=== PATIENT | male | born 1945 | race Caucasian/White ===

== ENCOUNTER 2017-08-11 06:33 | Observation (INO) | payer MEDICARE, BC ==
[~2017-08-11 06:33] MED LIST: MORPHINE SULFATE 15 MG TABLET.SA PO PRN; RINGER'S SOLUTION,LACTATED 1,000 ML IV PRN; ROPIVACAINE HCL/PF 100 MG, EPINEPHrine 0.2 MG, KETOROLAC TROMETHAMINE 30 MG in NORMAL S... IJ PRN; TRANEXAMIC ACID 1,000 MG in NORMAL SALINE 100 ML IV PRN; ceFAZolin SODIUM 1 GM VIAL IV PRN
[2017-08-11] MEDS ORDERED: RINGER'S SOLUTION,LACTATED 1,000 ML IV ONE ×2 (08:15→10:00)
[2017-08-11] MEDS ORDERED: BUPIVACAINE HCL/0.9 % NACL/PF 250 ML EP PRN (08:57)
--- NOTE | 2017-08-11 09:56 | POSTOP NO ---
Date of Surgery: 08/11/17 Patient Tolerated the Procedure: Well Post Operative Diagnosis/Procedures: Special Investigation Unit Investigator: Amari Sullivan PA-C Post-operative Diagnosis: Right knee degenerative joint disease Finding: Above Procedure: Right total knee arthroplasty Estimated Blood Loss: Minimal Specimens: Bone for disposal
[2017-08-11] MEDS ORDERED: PROMETHAZINE HCL 5 MG in DEXTROSE 5 % IN WATER 50 ML IV PRN ×2 (09:58)
[2017-08-11] MEDS ORDERED: diphenhydrAMINE HCL 50 MG/ML VIAL IV PRN (09:58)
[2017-08-11] MEDS ORDERED: ACETAMINOPHEN 500 MG TABLET PO PRN (09:58)
[2017-08-11] MEDS ORDERED: ONDANSETRON HCL/PF 2 MG/ML VIAL IV PRN (09:58)
[2017-08-11] MEDS ORDERED: HYDROmorphone HCL 2 MG/ML VIAL IV PRN (09:58)
[2017-08-11] MEDS ORDERED: oxyCODONE HCL/ACETAMINOPHEN 1 TAB TABLET PO PRN (09:58)
[2017-08-11] MEDS ORDERED: ZOLPIDEM TARTRATE 5 MG TABLET PO PRN (09:58)
[2017-08-11] MEDS ORDERED: MAG HYDROX/ALUMINUM HYD/SIMETH 30 ML UDC PO PRN (09:58)
[2017-08-11] MEDS ORDERED: MAGNESIUM HYDROXIDE 30 ML UDC PO PRN (09:58)
[2017-08-11] MEDS ORDERED: DEXTROSE 5%-LACTATED RINGERS 1,000 ML IV PRN (09:58)
--- NOTE | 2017-08-11 09:58 | OR ---
Operative Report - Dictated Report Narrative: Date: 08/11/2017 Preoperative diagnosis: Right Knee degenerative joint disease. Postoperative diagnosis: Right Knee degenerative joint disease. Procedure: Right Total knee arthroplasty. Surgeon: Guicho Riggins M.D. Casino Floor Supervisor: Amari Sullivan PA-C Anesthesia: Spinal with femoral canal block and indwelling catheter and local periarticular joint injection. Complications: None Specimens: Bone for disposal. Estimated blood loss: Minimal. Tourniquet time: 82 Minutes at 325 millimeters of mercury. Retained implants: Depuy Attune size 6 right lugged cemented posterior stabilized femoral component. Size 6 fixed-bearing cemented tibial platform. 6 by 5 millimeter posterior stabilized cross-linked tibial insert. 38 millimeter medialized patella button. Indications: Mr. Jack is a 71-year-old gentleman who has had long-standing right knee pain and arthrosis. This patient was followed in my clinic for period of time with significant complaints of right knee pain consistent with arthritic changes. He had failed conservative measures including, but not limited to, activity modification, passage of time, medications, and other conservative measures. Patient wished to proceed with surgical treatment. The risks, benefits, and alternatives were discussed in clinic. The risks of , blood clots, bleeding, infection, nerve/tendon blood vessel/ injury, malposition of components, intraoperative fracture, postoperative limited range of motion, persistent pain, failure of components, and need for additional procedures. Patient wished to proceed consent was obtained after answering all questions. Procedure: After marking the correct extremity on the floor, the patient was taken to the operating room. A timeout was performed. IV antibiotics consisting of Ancef were administered prior to the procedure. A regional femoral canal block with indwelling catheter followed by spinal anesthetic was induced by anesthesia, per my request, on the operative table with all bony prominences well-padded. Denton catheter was placed, and a bump was placed under the operative side buttock. SCDs and DEONTE hose were utilized on the nonoperative leg. A well-padded tourniquet was applied to the operative thigh. The operative leg was then pre-scrubbed with alcoho,l prepped, and draped in a standard sterile fashion. After exsanguinating the extremity with an Esmarch bandage, the tourniquet was inflated. After marking out the anterior knee for standard incision centered over the patella, the skin was incised and dissected down to the joint retinaculum. The joint retinaculum was marked out as well as the horizontal axis of the patella, and a standard medial parapatellar arthrotomy was then made. The most proximal aspect of the quadriceps tendon and the patella tendon insertion were protected from release. A partial synovectomy was performed as well as a resection of the infrapatellar fat pad. The distal femoral fat pad proximal to the trochlea was also resected using cautery. The soft tissues were elevated off the medial aspect of the proximal tibia using a Ham elevator ensuring that we did not transect the medial collateral ligament. Upon initial evaluation range of motion was approximately 0 degrees to 130 degrees of flexion. There were signs of advanced arthrosis in the medial and patellofemoral joint spaces. There were large marginal osteophytes which were removed with a rongeur. The knee was hyperflexed and the patella was tucked laterally. Protecting the surrounding soft tissues with Homans, an entry drill was placed down the femoral canal using Whitesides line for guidance into the entry point. The intramedullary femoral alignment taqueria was utilized in order to cut the distal femur in 5 degrees of valgus resecting 10 millimeters of bone. Next the distal femur was sized to a size 6. A posterior referencing guide was utilized to place the distal femoral cutting block in 3 degrees of external rotation. This was pinned into place. The rotation was confirmed both visually and based on anatomic landmarks. The 4 in 1 cutting jig of the appropriate size was utilized in order to make all bony cuts. The angle wing was used to ensure no notching. Retractors were utilized in order to protect surrounding soft tissues. This cut did not result in any excessive notching. We then cut the box centered over the distal femur. This allowed for resection of the anterior and posterior cruciate ligaments. I then turned my attention to the preparation of the tibia. Using an extra medullary tibial alignment taqueria, 2 millimeters of bone was resected off the medial articular surface. This was made perpendicular to the mechanical axis of the joint with the alignment taqueria centered over the ankle mortise. The alignment taqueria was checked and was noted to be parallel to the mechanical axis, centered over the medial one third of the tibial tubercle, paralleling the anterior surface of the tibia. We then turned our attention to the remaining meniscus and soft tissues. These were removed while protecting the surrounding ligaments and soft tissues. The marginal osteophytes off the anterior, posterior, medial, lateral aspects of the femur and tibia were removed. The tibia was sized out to a size 6. Next the tibia was drilled and punched in an externally rotated position. Next the trial femur and a series of tibial inserts were utilized in order to allow for full extension and maximal flexion. It was found that a 5 millimeter insert gave the best range of motion and stability at multiple flexion points as well as at full extension there was less than 2 mm of gapping both medially and laterally. There is minimal anterior translation with the knee at 90 degrees of flexion and no signs of being able to dislocate the knee. The patella was then prepared. The initial thickness was 21 millimeters. This was reamed down to 12 millimeters parallel to the anterior surface of the patella. It was sized out to a size 38 medialized patella button. This was then drilled and trialed. Without any medial restraint the patella tracked appropriately and did not sublux or dislocate. At this point, it was felt these were the appropriate sized implants, and all trials were removed. The standard periarticular joint injection consisting of ropivacaine, Toradol, and epinephrine were injected into the periarticular joint tissues. The bony surfaces were thoroughly irrigated with a pulsatile- suction saline irrigation device. A bone plug from the prior resected anterior chamfer cut was placed into the drill hole at the distal femur. The bony surfaces were then dried in preparation for placement of the implants. The cement was vacuum mixed per the embossing machine operator helper's instructions. The cement was placed on the dry bony surfaces and posterior aspect of the implants. The implants were impacted into place, removing all extruded cement. At this point anesthesia administered tranexamic acid per protocol intravenously. The knee was placed in extension with axial loading with the trial insert while the cement cured. Once the cement cured, all remaining extruded cement was removed. The knee was placed through a range of motion with the trial insert to ensure appropriate range of motion and stability. Final range of motion was approximately 0 to 120 degrees. The knee was again thoroughly irrigated with pulsatile saline lavage. The final polyethylene insert was then impacted into place ensuring no retained soft tissues. The remaining periarticular joint injection was injected. A medium Hemovac drain was placed exiting superior laterally. The knee was then placed over a triangle and the arthrotomy was closed with interrupted #1 Vicryl after thoroughly irrigating the joint. The deep and subcutaneous tissues were closed with interrupted 0 and 3-0 Vicryl respectively. Skin was closed with a running subcutaneous 3-0 Monocryl and Prineo Dermabond dressing. 4 x 4's, Sof-Rol, and a full leg Satish wrap were applied. All sponge, needle, blade, and instrument counts were correct prior to closing the wounds. Postoperative condition: The patient was awoken and transferred to the postanesthesia care unit in stable condition. Plan is to be admitted to the inpatient medical/surgical floor postoperatively for 24 hours of IV antibiotics , physical therapy, occupational therapy, and medical comanagement. Patient will be weightbearing as tolerated with range of motion as tolerated. DVT prophylaxis will be with SCDs, DEONTE hose, and pharmacological anticoagulation. Anticipated hospital stay is approximately 2-4 days.
[2017-08-11] MEDS: ceFAZolin SODIUM 1 GM in DEXTROSE 5 % IN WATER 50 ML IV SCH ×6 (11:37→23:08)
[2017-08-11] MEDS: KETOROLAC TROMETHAMINE 15 MG/ML VIAL IV SCH ×3 (11:38→23:08)
--- NOTE | 2017-08-11 14:20 | OR ---
Anesthesia Procedure Note - Anesthesia Procedure Note Date of Service: 08/11/17 Narrative: Vital Signs - Last Taken Temp 36.2 C L 08/11/17 10:55 Pulse 60 08/11/17 12:35 Resp 18 08/11/17 12:35 BP 146/78 08/11/17 12:35 Pulse Ox 92 08/11/17 12:35 O2 Oxygen Delivery Method Room Air 08/11/17 14:16 ANESTHESIA PROCEDURE NOTE Date of Procedure: 08/11/2017. Time of procedure: 739. Performed by: Sharad Castillo CRNA Dental Director: None. Preprocedure diagnosis: Right knee degenerative joint disease. Post procedure diagnosis: Same. Procedure: Right ultrasound guided adductor canal blockwith insertion of indwelling catheter for continous nerve block postoperative analgesia. Indications: The patient is a 71 -year-old male, scheduled for right total knee arthroplasty and is requesting a right ultrasound-guided adductor canal block with catheter insertion for continuous post operative analgesia. Findings: See below. Details of the procedure: The tissue over the intended target site was cleansed with ChloraPrep and draped in a sterile fashion. 2 ml Lidocaine 1 % was infiltrated to the skin and subcutaneous tissue at the intended target site. Under sterile technique and ultrasound guidance a 18-gauge Tuohy needle was inserted through the right sartorius muscle to the saphenous nerve just medial to the femoral artery and vein. 15 mL's of 0.5% bupivacaine was injected after negative aspiration for blood. Needle tip and spread of local anesthetic surrounding the saphenous nerve was observed throughout the injection with real time ultrasound visualization. The bevel of the Tuohy needle was rotated 90 degrees clockwise to facilitate catheter insertion. A 20 guage closed tip catheter was easily threaded 4 cm into the adductor canal. The Tuohy needle was then removed intact. 1 ml sterile normal saline with 0.25 ml air was the injected through the catheter under real time ultrasound imaging to confirm catheter placement. Dermabond was applied to the skin at the catheter insertion site. tincture of benzoin was applied the the skin. the catheter was the secured with 1/4 inch steri strips and covered with a sterile tegaderm dressing. No complications were noted. The images were retained in the Hospital medical database . EBL: Minimal. Fluids: N/A. Specimen: N/A. Post procedure condition: The patient tolerated the procedure well. No complications were noted. Thank you for this consultation. Sharad Castillo CRNA 08/11/17 14:17
[2017-08-11] MEDS ORDERED: POLYVINYL ALCOHOL 150 DROP BTL LEFTEYE PRN (17:29)
[2017-08-11] MEDS: MORPHINE SULFATE 15 MG TABLET.SA PO SCH (20:51)
[2017-08-11] MEDS ORDERED: ATENOLOL 25 MG TABLET PO SCH (21:00)
[2017-08-11] MEDS ORDERED: SENNOSIDES/DOCUSATE SODIUM 1 TAB TABLET PO SCH (21:00)
[2017-08-12] MEDS: KETOROLAC TROMETHAMINE 15 MG/ML VIAL IV SCH ×2 (05:19→10:33)
[2017-08-12 05:49] LABS: Hematocrit 41.1 % (42.0-52.0); Hemoglobin 13.8 gm/dL (13.5-18.0); Mean Corpuscular Hemoglobin 27.9 pg (27-31); Mean Corpuscular Hgb Conc 33.6 g/dl (32-36); Platelet Count 144 K/mm3 (150-450); Red Blood Count 4.95 M/mm3 (4.7-6.0); Red Cell Distribution Width 13.7 % (11.5-14.0); White Blood Count 8.9 K/mm3 (4.0-10.5)
[2017-08-12 05:57] LABS: Anion Gap 10.4 mmol/L (6.8-13.8); BUN/Creatinine Ratio 16.1 (9.0-21.6); Calcium * 8.5 mg/dL (7.9-10.9); Carbon Dioxide 28.4 mmol/L (24-32.6); Estimated Creat Clear 67.6; Potassium 3.8 mmol/L (3.4-4.6)
[2017-08-12] MEDS ORDERED: LEVOTHYROXINE SODIUM 150 MCG TABLET PO SCH (07:00)
[2017-08-12] MEDS: MORPHINE SULFATE 15 MG TABLET.SA PO SCH (08:31)
[2017-08-12] MEDS ORDERED: ENOXAPARIN SODIUM 40 MG/0.4 ML SYRG SC SCH (08:58)
[2017-08-12 10:40] VITALS: BP 136/68
--- NOTE | 2017-08-12 11:48 | OR ---
Anesthesia Procedure Note - Anesthesia Procedure Note Date of Service: 08/12/17 Narrative: Vital Signs - Last Taken Temp 36.8 C 08/12/17 10:39 Pulse 68 08/12/17 10:39 Resp 18 08/12/17 10:39 BP 136/68 08/12/17 10:39 Pulse Ox 96 08/12/17 10:39 O2 Oxygen Delivery Method Room Air 08/12/17 11:45 ANESTHESIA PROCEDURE NOTE Date of Procedure: 08/12/2017. Time of procedure: 1120. Performed by: Sharad Castillo CRNA Industrial Automation Specialist: None. Preprocedure diagnosis: Degenerative joint disease right knee. Post procedure diagnosis: Same. Procedure: Removal right adductor canal block catheter. Indications: This 71-year-old male who has a indwelling right abductor canal block catheter and is scheduled for discharge. Findings: See below. Details of the procedure: Tegaderm dressing was removed. The adductor canal block catheter was removed intact with confirmation of intact blue tip. EBL: Minimal. Fluids: N/A. Specimen: N/A. Post procedure condition: The patient tolerated the procedure well. No complications were noted. Thank you for this consultation. Sharad Castillo CRNA
--- NOTE | 2017-08-12 12:21 | DS ---
(1) Hypertension Problem: Acute (2) S/P total knee arthroplasty Problem: Acute Description of Stay: Mr. Jack was admitted to the floor after undergoing right total knee arthroplasty. Tolerated this well. Was admitted to the floor postoperatively for 24 hours of IV antibiotics, pain control, medical comanagement, and occupational and physical therapy. OT and PT were consulted to assist with activities of daily living and ambulation. Was made weightbearing as tolerated with range of motion as tolerated. Pain was initially controlled with IV regimen. This was transitioned to oral once tolerating a by mouth intake. Was resumed on home diet and medications. Had a Denton catheter inserted and the operating room which was discontinued on postoperative day 1. A drain was placed intraoperatively into the knee which was discontinued on postoperative day 1. Lovenox SCD and DEONTE hose were utilized for DVT prophylaxis. Vital signs remained stable to the hospital course. Serial labs were obtained which showed a final 13.8 hemoglobin of grams. BMP was reviewed and was stable. Physical examination throughout the hospital course showed an extremity that had sensation that was intact to light touch, palpable pulses, a benign wound, motor intact to the toes, ankle, and knee. Knee range of motion was approximately 70 degrees to [] degrees. Once an oral pain regimen was tolerated and physical therapy goals were met, it was felt that they were stable for discharge to home. Instructions: Continue with weightbearing as tolerated and range of motion as tolerated. It is OK to shower on the wound if it is not draining. If you note any drainage or for comfort you can cover with dry gauze and tape. Change every 2-3 days as needed. Continue with physical therapy. Resume home diet. Report any fever over 101.5 Fahrenheit, uncontrolled pain, increased drainage, foul odor of drainage, new or increased calf pain or shortness of breath, or any other significant complaints. A 325mg dialy aspirin will be started after finishing anticoagulation if not allergic. Continue with DEONTE hose on the operative extremity until instructed otherwise. No driving until instructed otherwise. Follow up in approximately 10-14 days. Procedures Performed: see notes below List Procedures: Right total knee arthroplasty Discharge Disposition: Home self care Disposition: Home self-care Condition: Good Discharge Activity: Activity as tolerated, Other - with walker Discharge Diet: General/regular food, Low salt [facility] Therapy: Physicial Therapy Referrals: Shell Lomas, SHUFFLE BOARD OPERATOR [Primary Care Provider] - Prescriptions (Any new or edited meds): Enoxaparin Sodium [Lovenox] 40 mg SC Q24H #7 disp.syrin Morphine Sulfate [Ms Contin] 15 mg PO Q12H #20 tablet.sa oxyCODONE HCL/ACETAMINOPHEN [Percocet 5 MG/325 MG] 2 tab PO Q4H PRN #90 tablet PRN Reason: Moderate Pain (Pain Scale 4-6) Sennosides/Docusate Sodium [Senokot-S] 2 tab PO HS #30 tablet Complete Home Medications List: Complete Home Medication List: Atenolol [Tenormin] 25 mg PO HS 05/07/15 Levothyroxine Sodium [Synthroid] 150 mcg PO DAILY 07/30/17 Enoxaparin Sodium [Lovenox] 40 mg SC Q24H #7 disp.syrin 08/12/17 Morphine Sulfate [Ms Contin] 15 mg PO Q12H #20 tablet.sa 08/12/17 Sennosides/Docusate Sodium [Senokot-S] 2 tab PO HS #30 tablet 08/12/17 oxyCODONE HCL/ACETAMINOPHEN [Percocet 5 MG/325 MG] 2 tab PO Q4H PRN #90 tablet 08/12/17 Amb Orders for Discharge: PT Evaluation and Treatment Facility: [facility], Location: Rehabilitation Services
== END 2017-08-12 14:53 | disposition home or self-care (01) ==
LOC: AMB 06:33 → EDSTATUS 08:00 → MS 10:24
PROVIDERS: ADMIT Orthopaedic Surgery; ATTEND Orthopaedic Surgery
PROC: 0SRC069 Replacement of Right Knee Joint with Oxidized Zirconium on Polyethylene Synthetic Substitute, Cemented, Open Approach (ICD-10-PCS; principal; 2017-08-11)
DX: M17.11 Unilateral primary osteoarthritis, right knee (principal); D64.9 Anemia, unspecified; I10 Essential (primary) hypertension; Z85.850 Personal history of malignant neoplasm of thyroid; E89.0 Postprocedural hypothyroidism; Z68.33 Body mass index [BMI] 33.0-33.9, adult
CPT/HCPCS: 27447; 36415; 73560; 80048; 85027; 97110; 97116; 97162; 97165; 97530; 97535; C1776; G8978; G8979; G8980

== ENCOUNTER 2019-04-21 18:26 | Observation (INO) ==
--- NOTE | 2019-04-21 19:03 | ERNOTE ---
Headache ER HPI - Narrative Date of Service: 04/21/19 - General Presenting Symptoms: headache Time Seen by Provider: 04/21/19 18:47 Source: patient, family, RN notes reviewed Exam Limitations: no limitations - Immun/Allergies/Home Medications Immunizations: IMMUNIZATION HX Immunizations Up to Date Yes History of Influenza Vaccine No Hx Pneumococcal Vaccination Yes Allergies/Adverse Reactions: Allergies Penicillins Adverse Reaction (Mild, Verified 04/21/19 18:37) joints ache morphine Adverse Reaction (Verified 04/21/19 18:37) rash Home Medications: HOME MEDICATIONS Atenolol [Tenormin] 25 mg PO HS 05/07/15 [Last Taken Unknown] Levothyroxine Sodium [Synthroid] 150 mcg PO DAILY 07/30/17 [Last Taken Unknown] aspirin 81 mg tablet,delayed release 81 mg PO DAILY 04/06/19 [Last Taken Unknown] - History of Present Illness Narrative: Jamil is a 73 year old male brought to the ED by his for a 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 He was watching the news at the time. He also reports having altered sensation in the left side of his face and blurred vision. These symptoms have resolved, but the headache continues. His pain is in the left temporal region. He has not taken anything for the headache and denies needing any medication on initial exam. His reports that he seemed like he could not remember how to get out of the car when they arrived here. He admits that these episodes have been happening for a couple of months. Tonight was the first time he told his . Date (Duration): 04/21/19 Time (Timing): 17:45 Activity at onset: other - Rest Timing of Headache: abrupt, still present Context Headache: Present: new onset Quality: Present: achy Headache frequency: Present: occasional headaches. Absent: similar to previous headache Associated Symptoms: Reports: numbness/tingling. Denies: fever/chills, nausea, vomiting, nasal congestion, vision changes, dizziness, neck pain/stiffness, speech problems Prior Treament: Denies: recently seen Review of Systems - Review of Systems Constitutional: Absent: recent illness, fever, chills, malaise EYE: Present: blurred vision, vision changes. Absent: eye pain ENT: Absent: ear pain, nose congestion, sore throat Respiratory: Absent: shortness of breath, cough Cardiology: Absent: chest pain, palpitations, syncope Gastrointestinal/Abdominal: Absent: nausea, vomiting Genitourinary: Present: no symptoms reported Musculoskeletal: Absent: muscle pain, neck pain, joint pain Skin: Absent: rash, lesions Neurological: Present: headache. 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 Murguia Migraine Onset Date: Unknown Psoriasis Onset Date: Unknown Right knee DJD Onset Date: Unknown Thyroid nodule Onset Date: [address] murguia Surgical History: Surgical History (Updated 10/01/18 @ 10:38 by Guicho Riggins MD) History of appendectomy Onset Date: Unknown 6th grade History of colonoscopy Onset Date: 04/06/04 Normal-Dr Dowling History of knee replacement procedure of right knee Onset Date: 08/11/[address] Riggins History of thyroidectomy Onset Date: [address] [facility] [address] murguia hemorrhoid surgery Onset Date: Unknown 40 years ago Family History: Family History (Updated 09/30/18 @ 07:17 by Leidy Mathias) Brother Aneurysm stomach Brother Alive and well Brother Alive and well Brother Alive and well Sister Alive and well Sister Alive and well Sister Alive and well Father Cancer mouth Myocardial infarction Brother Myocardial infarction Mother No problems noted. 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 Service: No Tobacco: Smoking Status: Never smoker Alcohol: alcohol intake: current alcohol intake frequency: holiday/special occasion details: 1-2 glasses/wk Substance Use: substance use type: does not use Dietary Habits: caffeine: Yes Type: coffee Physical Exam - Physical Exam General Appearance: Present: wd/wn, alert, no apparent distress, other - Pleasant, talkative Head Exam: Present: normal inspection, no evidence of injury Eye Exam: Normal inspection: bilateral, PERRL: bilateral, EOMI: bilateral Ears, Nose, Throat: Present: normal ENT inspection, normal pharynx Neck: Present: normal inspection, nontender, supple, full range of motion Respiratory: Present: no respiratory distress, normal breath sounds, no accessory muscle use, lungs clear Cardiovascular/Chest: Present: no murmur, irregularly irregular Extremity Exam: Present: normal inspection, normal range of motion, no edema Neurological Exam: Present: alert, oriented, normal mood/affect, facial droop - left Skin Exam: Present: normal color, warm/dry Progress - Results and Orders Patient's Lab Results:: I have reviewed the patient's lab results. - Vital Signs Patient's Vital Signs:: I have reviewed the patient's vital signs. Vital Signs: Vital Signs 04/21/19 18:33 Temperature 36.8 C Pulse Rate 79 Respiratory Rate 16 Blood Pressure 172/82 H O2 Sat by Pulse Oximetry 93 - EKG EKG #1 EKG: other - Sinus rhythm with 1st degree AVB and freq PACs EKG read: Reviewed by me - CT/Ultrasound CT/Ultrasound Narrative: CT Head W/O *: Age-related cortical atrophy and periventricular white matter chronic ischemic changes are present. Intracranial atherosclerotic calcifications noted. 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 No acute intracranial hemorrhage. No midline shift or herniation. Ceballos and white matter differentiation is grossly intact. No obvious soft tissue swelling or scalp hematoma noted. Skull grossly intact, without signs of depressed skull fracture. Visualized portions of the paranasal sinuses are clear. Mastoid air cells are grossly clear. IMPRESSION: 1. No acute intracranial hemorrhage or mass effect. 2. 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 Consider further evaluation by CT or MR angiography. 3. Additional comments as above. Ordering provider Nataliia Morales NP was informed regarding the above results by telephone on 04/21/2019 7:25 PM. Electronically signed by Leora Parmar M.D.. - Progress/Reassessment Chief Complaint: Headache Progress:: Improved Plan - Plan Plan: The patient's facial droop and paresthesias have resolved. He continues to have a headache behind his left eye but still declines any pain medicaiton for it. Dr. Veronica was contacted for admission. She requested that neurology be consulted before the patient was admitted here. I initially contacted UI consult at [phone]. A neurologist was paged. I finally received a call back from Dr. Jose Alberto Gamez (sp?) at [phone]. I discussed the patient with him, particularly if a LP should be done to more definitively rule out intracranial bleeding prior to admission. Since the patients nuero symptoms have resolved, he did not feel this was necessary. He recommended that the patient be observed overnight and that neurology be consulted. Dr. Veronica agreed to admit the patient to observation status on med/surg. He will be on Tele d/t his irregular heart rhythm - his EKG read this as Afib - Dr. Veronica and I agreed that it appears to be a sinus rhythm with a first degree block and frequent PAC's. Departure Clinical Impression: Neurological deficit, transient Acute headache Qualifiers: Headache type: unspecified Intractability: not intractable Qualified Code(s): R51 - Headache - Departure Disposition: Still a patient Condition: Stable
[2019-04-21 19:09] LABS: Hematocrit 44.7 % (42.0-52.0); Hemoglobin 14.7 gm/dL (13.5-18.0); Mean Cell Volume 86.6 fl (78-100); Mean Corpuscular Hemoglobin 28.5 pg (27-31); Mean Corpuscular Hgb Conc 32.9 g/dl (32-36); Mean Platelet Volume 10.5 fl (8-11.3); Neutrophil # 3.4 K/mm3 (1.3-6.0); Platelet Count 172 K/mm3 (150-450); Red Blood Count 5.16 M/mm3 (4.7-6.0); Red Cell Distribution Width 13.9 % (11.5-14.0); White Blood Count 6.1 K/mm3 (4.0-10.5)
[2019-04-21 19:21] LABS: Prothrombin Time (Patient) 10.7 Seconds (9.1-10.7)
[2019-04-21 19:23] LABS: Albumin * 3.7 gm/dl (3.4-5.0); BUN/Creatinine Ratio 20.2 (9.0-21.6); Bilirubin, Total 0.9 mg/dL (0.0-1.1); Ca. Corrected For Albumin 9.2 mg/dL (8.4-10.2); Calcium * 9.3 mg/dL (7.9-10.9); Carbon Dioxide 29.8 mmol/L (24-32.6); Potassium 3.8 mmol/L (3.4-4.6)
[2019-04-21 19:24] LABS: INR 1.08 INR (0.92-1.08); Partial Thrombolplastin Time 26.3 Seconds (24-32)
[2019-04-21] MEDS: ACETAMINOPHEN 325 MG TABLET PO PRN (23:02)
[2019-04-21] MEDS ORDERED: ATENOLOL 25 MG TABLET PO SCH (23:45)
[2019-04-21] MEDS ORDERED: ATENOLOL 50 MG TABLET PO SCH (23:45)
[2019-04-22] MEDS: ACETAMINOPHEN 325 MG TABLET PO PRN ×2 (04:53→12:02)
[2019-04-22] MEDS ORDERED: LEVOTHYROXINE SODIUM 150 MCG TABLET PO SCH (07:00)
--- NOTE | 2019-04-22 07:29 | HP ---
Chief Complaint - Chief Complaint Date of Service: 04/22/19 Time of Service: 07:28 Chief Complaint: headache History of Present Illness: Patient with past medical history of hypertension presented to the ER after having fairly sudden onset headache behind his left eye. He also has a bit of dizziness, and his reports he is not at his baseline mentation. He forgot the names of his grandchildren. His vision from his left eye is blurred, and he's having some drooping of the left side of his face. He states he has been having these episodes for a while, but not to this extent. CT head done in the ED was suggestive of possible 6 mm basilar aneurysm. Neurology at the [facility] was consulted, who stated that his symptoms are getting worse and lumbar puncture was not needed, they recommended further imaging and follow- up with neurology. 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 Murguia Migraine Onset Date: Unknown Psoriasis Onset Date: Unknown Right knee DJD Onset Date: Unknown Thyroid nodule Onset Date: [address] murguia Surgical History: Surgical History (Updated 04/22/19 @ 07:29 by Shira Veronica DO) History of appendectomy Onset Date: Unknown 6th grade History of colonoscopy Onset Date: 04/06/04 Normal-Dr Dowling History of knee replacement procedure of right knee Onset Date: 08/11/[address] Riggins History of thyroidectomy Onset Date: 2010 [facility] dr murguia hemorrhoid surgery Onset Date: Unknown 40 years ago Family History: Family History (Updated 09/30/18 @ 07:17 by Leidy Mathias) Brother Aneurysm stomach Brother Alive and well Brother Alive and well Brother Alive and well Sister Alive and well Sister Alive and well Sister Alive and well Father Cancer mouth Myocardial infarction Brother Myocardial infarction Mother No problems noted. 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 Service: No Tobacco: Smoking Status: Never smoker Alcohol: alcohol intake: current alcohol intake frequency: holiday/special occasion details: 1-2 glasses/wk Substance Use: substance use type: does not use Dietary Habits: caffeine: Yes Type: coffee Review Of Systems (GEN) - Review of Systems Generalized/Overall Review: Absent: Fever EENTM: Present: Blurred Vision Respiratory: Absent: Shortness of Breath Cardiac: Absent: Chest Pain Abdominal: Absent: Nausea Genitourinary: Present: No Symptoms Reported Musculoskeletal: Present: No Symptoms Reported Neurological: Present: Headache Skin: Present: No Symptoms Reported Immunizations: IMMUNIZATION HX Immunizations Up to Date Yes History of Influenza Vaccine No Hx Pneumococcal Vaccination Yes Allergies/Adverse Reactions: Allergies Allergy/AdvReac Type Severity Reaction Status Date / Time Penicillins AdvReac Mild joints ache Verified 04/21/19 18:37 morphine AdvReac rash Verified 04/21/19 18:37 Home Medications: HOME MEDICATIONS Atenolol [Tenormin] 25 mg PO HS 05/07/15 [Last Taken 04/20/19 21:00] Levothyroxine Sodium [Synthroid] 150 mcg PO DAILY 07/30/17 [Last Taken 04/21/19 06:30] aspirin 81 mg tablet,delayed release 81 mg PO DAILY 04/06/19 [Last Taken Unknown] Exam - Exam Vital Signs: Vital Signs - Last Taken Temp 36.6 C 04/22/19 07:07 Pulse 67 04/22/19 07:07 Resp 17 04/22/19 07:07 BP 147/67 04/22/19 07:07 Pulse Ox 92 L 04/22/19 07:07 Constitutional: Present: Alert, Cooperative, Well developed, Well nourished, No distress Respiratory: Present: normal breath sounds, no respiratory distress Cardiovascular/Chest: Present: regular rate, rhythm Abdomen: Present: soft, nontender Extremity: Absent: lower extremity edema Neurologic: Present: glass block bender II-XII nml as tested, no motor/sensory deficits, alert, normal mood/affect, other - [id number]-[id number] intact, alternating hand movement intact, speech intact. Absent: facial droop Eye contact: Present: cooperative, good eye contact Diagnostic Studies: Abnormal Lab Results 04/21/19 04/21/19 Range/Units 19:00 19:00 Immature Gran % (Auto) 0.50 H (0.001-0.429) % Monocytes % 13.0 H (0.0-9) % Eosinophils % 5.9 H (0.0-3.0) % Basophils % 1.2 H (0.0-1.0) % Lymphocytes # 1.42 L (1.5-3.5) k/mm3 ALT 17 L (19-67) U/L Laboratory Results WBC 6.1 K/mm3 (4.0-10.5) 04/21/19 19:00 RBC 5.16 M/mm3 (4.7-6.0) 04/21/19 19:00 Hgb 14.7 gm/dL (13.5-18.0) 04/21/19 19:00 Hct 44.7 % (42.0-52.0) 04/21/19 19:00 MCV 86.6 fl (78-100) 04/21/19 19:00 MCH 28.5 pg (27-31) 04/21/19 19:00 MCHC 32.9 g/dl (32-36) 04/21/19 19:00 RDW 13.9 % (11.5-14.0) 04/21/19 19:00 Plt Count 172 K/mm3 (150-450) 04/21/19 19:00 MPV 10.5 fl (8-11.3) 04/21/19 19:00 Immature Gran % (Auto) 0.50 % (0.001-0.429) H 04/21/19 19:00 Immature Gran # (Auto) 0.03 K/mm3 (0.000-0.0310) 04/21/19 19:00 56.0 % (42-75.0) 04/21/19 19:00 23.4 % (20-51) 04/21/19 19:00 13.0 % (0.0-9) H 04/21/19 19:00 5.9 % (0.0-3.0) H 04/21/19 19:00 1.2 % (0.0-1.0) H 04/21/19 19:00 Nucleated RBC % 0.0 k/mm3 (0-1) 04/21/19 19:00 3.4 K/mm3 (1.3-6.0) 04/21/19 19:00 1.42 k/mm3 (1.5-3.5) L 04/21/19 19:00 0.8 k/mm3 (0.0-1.0) 04/21/19 19:00 0.4 k/mm3 (0.0-0.7) 04/21/19 19:00 Absolute Basophils 0.1 k/mm3 (0.0-0.1) 04/21/19 19:00 PT 10.7 Seconds (9.1-10.7) 04/21/19 19:00 INR (Anticoag Therapy) 1.08 INR (0.92-1.08) 04/21/19 19:00 PTT ([place]) 26.3 Seconds (24-32) 04/21/19 19:00 Sodium 142 mmol/L (132-142) 04/21/19 19:00 142 mmol/L (130-142) 04/21/19 19:00 Potassium 3.8 mmol/L (3.4-4.6) 04/21/19 19:00 Chloride 106 mmol/L (97-106) 04/21/19 19:00 Carbon Dioxide 29.8 mmol/L (24-32.6) 04/21/19 19:00 10.0 mmol/L (6.8-13.8) 04/21/19 19:00 BUN 21 mg/dL (6-23) 04/21/19 19:00 1.04 mg/dL (0.4-1.4) 04/21/19 19:00 Est GFR (Non-Af Amer) 75 mL/min (60-130) 04/21/19 19:00 20.2 (9.0-21.6) 04/21/19 19:00 98 mg/dL (70-110) 04/21/19 19:00 Calcium 9.3 mg/dL (7.9-10.9) 04/21/19 19:00 Calcium Adj for Albumin 9.2 mg/dL (8.4-10.2) 04/21/19 19:00 0.9 mg/dL (0.0-1.1) 04/21/19 19:00 AST 18 U/L (0-48) 04/21/19 19:00 ALT 17 U/L (19-67) L 04/21/19 19:00 116 U/L (50-170) 04/21/19 19:00 7.0 gm/dL (6.2-8.2) 04/21/19 19:00 3.7 gm/dl (3.4-5.0) 04/21/19 19:00 Assessment/Plan - Assessment/Plan (1) Acute headache Assessment: CT Head shows "No acute intracranial hemorrhage or mass effect. 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 will ensure his BP is controlled, and will have him follow up with neurology after DC. Will also discuss starting a statin. Potential DC later today. He declines further medications to treat his headache, but will have tylenol available should he need it. Problem: Acute Qualifiers: Headache type: unspecified Intractability: not intractable Qualified Code(s): R51 - Headache (2) Neurological deficit, transient Assessment: He was having mild left facial droop. His cranial nerves appear intact this morning. MRA pending, and will continue neuro checks. Problem: Acute (3) Hypertension Assessment: He is currently prescribed atenolol for his BP, but it is still high. Would recommend changing agents, possibly to lisinopril. Problem: Chronic Qualifiers: Hypertension type: essential hypertension Qualified Code(s): I10 - Essential (primary) hypertension
[2019-04-22] MEDS ORDERED: FLU VACC QS2019-20(6MOS UP)/PF 60 MCG/0.5 ML SYRINGE IM ONE (09:00)
--- NOTE | 2019-04-22 11:10 | DS ---
(1) Acute headache Problem: Resolved Qualifiers: Headache type: unspecified Intractability: not intractable Qualified Code(s): R51 - Headache (2) Neurological deficit, transient Problem: Resolved (3) Hypertension Problem: Chronic Qualifiers: Hypertension type: essential hypertension Qualified Code(s): I10 - Essential (primary) hypertension Date of Discharge:: 04/22/19 Description of Stay: Patient with past medical history of hypertension presented to the ER after having fairly sudden onset headache behind his left eye. He also had a bit of dizziness, and his reports he is not at his baseline mentation. He was forgetting the names of his grandchildren. His vision from his left eye is blurred, and he's having some drooping of the left side of his face. He states he has been having these episodes for a while, but not to this extent. CT head done in the ED was suggestive of possible 6 mm basilar aneurysm. Neurology at the [facility] was consulted, who stated that his symptoms are getting worse and lumbar puncture was not needed, they recommended further imaging and follow-up with neurology. On exam, he did not have neurologic deficits. His left sided facial droop was not apparent. MRA head was done, which was negative. The potential aneurysm was due basilar artery tortuosity. With his HTN and potential TIA, starting a statin was discussed, and the patient and his agree. His BP 147/67 on the day of DC, and they would like to discuss possibly changing agents with his PCP. They would like to see Dr. Hughes at follow up. Of note, no changes were made to his home atenolol or levothyroxine doses. These meds were inadvertently entered twice. Procedures Performed: none Results and Findings: Lab Pending Results 04/21/19 19:00: WBC 6.1, RBC 5.16, Hgb 14.7, Hct 44.7, MCV 86.6, MCH 28.5, MCHC 32.9, RDW 13.9, Plt Count 172, MPV 10.5, Immature Gran % (Auto) 0.50 H, Immature Gran # (Auto) 0.03, Neutrophils % 56.0, Lymphocytes % 23.4, Monocytes % 13.0 H, Eosinophils % 5.9 H, Basophils % 1.2 H, Nucleated RBC % 0.0, Neutrophils # 3.4, Lymphocytes # 1.42 L, Monocytes # 0.8, Eosinophils # 0.4, Absolute Basophils 0.1 04/21/19 19:00: PT 10.7, INR (Anticoag Therapy) 1.08, PTT ([place]) 26.3 04/21/19 19:00: Sodium 142, Plasma Sodium 142, Potassium 3.8, Chloride 106, Carbon Dioxide 29.8, Anion Gap 10.0, BUN 21, Creatinine 1.04, Est GFR (Non-Af Amer) 75, BUN/Creatinine Ratio 20.2, Random Glucose 98, Calcium 9.3, Calcium Adj for Albumin 9.2, Total Bilirubin 0.9, AST 18, ALT 17 L, Alkaline Phosphatase 116, Total Protein 7.0, Albumin 3.7 Discharge Location: Home Disposition: Home self-care Condition: Stable Discharge Activity: Activity as tolerated Discharge Diet: General/regular food Referrals: Shell Lomas CNP [Primary Care Provider] - One Week Jaime Hughes MD [Consulting Physician] - One Week Additional Patient Instructions (free text): -Please make TCM appointment unless custodial discharge, or if following up with outside provider. Thank you! Patsy @ [id number]. Prescriptions (Any new or edited meds): Atorvastatin Calcium 20 mg PO DAILY #30 tab Complete Home Medications List: Complete Home Medication List: Atenolol [Tenormin] 25 mg PO HS 05/07/15 Levothyroxine Sodium [Synthroid] 150 mcg PO DAILY 07/30/17 aspirin 81 mg tablet,delayed release 81 mg PO DAILY 04/06/19 Atorvastatin Calcium 20 mg PO DAILY #30 tab 04/22/19
[2019-04-22 12:56] VITALS: BP 141/75
[2019-04-22] MEDS ORDERED: ATENOLOL 25 MG TABLET PO SCH (21:00)
== END 2019-04-22 12:45 | disposition home or self-care (01) ==
LOC: MS 18:26 → ER 18:26 → MS 22:42
PROVIDERS: ADMIT Family Medicine; ATTEND Family Medicine
CPT/HCPCS: 36415; 70450; 70544; 80053; 85025; 85610; 85730; 90686; 93005; 99285; G0008; G0378